=== PATIENT | female | born 1985 | race Caucasian/White ===

== ENCOUNTER 2017-07-28 09:53 | Emergency (ER) | payer BC ==
[2017-07-28] MEDS ORDERED: ALBUTEROL SULFATE/IPRATROPIUM 3 ML NEBU IH ONE ×2 (10:05→10:07)
[2017-07-28] MEDS ORDERED: PENICILLIN G BENZATHINE 2 ML SYRG IM ONE ×2 (10:09→10:41)
[2017-07-28] MEDS ORDERED: predniSONE 20 MG TABLET PO ONE (10:09)
--- NOTE | 2017-07-28 10:13 | ERNOTE ---
Dyspnea - General Presenting Symptoms: other - patient has no strep throat and she was up today with questionable stridor Time Seen by Provider: 07/28/17 10:07 Source: patient Exam Limitations: no limitations - Immun/Allergies/Home Medications Immunizations: IMMUNIZATION HX Immunizations Up to Date No History of Influenza Vaccine No Hx Pneumococcal Vaccination No Allergies/Adverse Reactions: Allergies No Known Allergies Allergy (Unverified 09/01/14 09:45) Home Medications: HOME MEDICATIONS Albuterol Sulfate [Proair Hfa] 2 puff IH Q4H PRN #1 inhaler 09/01/14 [Last Taken Unknown] Ciprofloxacin HCl [Ciloxan] 2 drop OP Q4H #1 bottle 09/01/14 [Last Taken Unknown ] Phenylephrine/Dm/Acetaminop/GG [Tylenol Cold & Flu Severe Cplt] 1 each PO [Last Taken 09/01/14 07:30] Promethazine HCl/Codeine [Phenergan W/Codeine Syrup] 5 ml PO Q4H PRN #120 ml 10/15 [Last Taken Unknown] predniSONE [Deltasone] 20 mg PO BID #10 tablet 07/28/17 [Last Taken Unknown] - History of Present Illness Narrative: Patient presents with possible stridor however it sounds more like increased phonation coming from the vocal cords Severity: moderate 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 Initiating event: Reports: other - strep throat Frequency of episodes: Reports: no prior episodes Modifying Factors - (Improves): Reports: nothing Modifying Factors (Worsens): Reports: nothing Associated Symptoms-Dyspnea: Reports: denies symptoms Prior Treatment: Reports: recently seen, treated by physician, currently on antibiotics Review of Systems - Review of Systems Constitutional: Present: See HPI EYE: Present: no symptoms reported ENT: Present: sore throat Respiratory: Present: stridor - questionable Cardiology: Present: no symptoms reported Gastrointestinal/Abdominal: Present: no symptoms reported Genitourinary: Present: no symptoms reported Musculoskeletal: Present: no symptoms reported Skin: Present: no symptoms reported Neurological: Present: no symptoms reported Endocrine: Present: no symptoms reported Hematologic/Lymphatic: Present: no symptoms reported Psych: Present: no symptoms reported - Patient's Past Medical History Patient History - Medical: Other - current strep throat Patient History - Cardiac/Respiratory: No pertinent hx Patient History - Cancer: No Hx of Cancer Patient History - Surgical Procedures: Patient History - Other: None LMP (females 10-50): chemo; 11 mo since period - Social History Living Situations: home Psych History: Hx of Depression Smoking Status: Former smoker Alcohol Use: none Drug Use: none - Immunizations Immunizations Up to Date: No Hx Pneumococcal Vaccination: No History of Influenza Vaccine: No Physical Exam - Physical Exam General Appearance: Present: wd/wn, alert, mild distress Head Exam: Present: normal inspection, no evidence of injury Eye Exam: Normal inspection: bilateral, PERRL: bilateral Ears, Nose, Throat: Present: normal ENT inspection, pharyngeal erythema Neck: Present: nontender, other - increased phonation Respiratory: Present: no respiratory distress, normal breath sounds, no accessory muscle use, chest nontender, lungs clear Cardiovascular/Chest: Present: regular rate, rhythm, no murmur, normal peripheral pulses Gastrointestinal/Abdominal: Present: normal bowel sounds, nontender, nondistended, soft, no organomegaly Rectal Exam: Present: deferred Back Exam: Present: normal inspection, normal range of motion Extremity Exam: Present: normal inspection, non-tender, no edema, normal range of motion Neurological Exam: Present: alert, oriented, normal mood/affect Skin Exam: Present: normal color, warm/dry Lymphatic Exam: Present: no adenopathy ED Progress - Vital Signs Patient's Vital Signs:: I have reviewed the patient's vital signs. Vital Signs: Vital Signs 07/28/17 07/28/17 09:57 10:08 Temperature 37.1 C Pulse Rate 75 98 Respiratory 25 H 23 H Rate Blood Pressure 155/102 O2 Sat by Pulse 99 99 Oximetry - X-Ray X-Ray #1 X-Ray: chest Interpretation: Reviewed by me X-Ray #2 X-Ray: neck soft tissue Interpretation: Reviewed by me - Progress/Reassessment Chief Complaint: Dyspnea Plan - Plan Plan: On soft tissue neck x-ray patient has minimal subglottic narrowing which could be secondary to chronic tracheitis. Patient has apparently been having these symptoms for 2-3 months and is seems appropriate for her to get an ENT referral. Patient will be placed on 5 days of prednisone and she was given 1.2 million units of Bicillin IM. Departure Clinical Impression: Tracheitis, chronic, with laryngitis - Departure Disposition: Home self-care Condition: Good Instructions: Laryngitis, [id number] Additional Instructions: call Dr. Lao for an appt Referrals: Teofilo Lao MD [[facility]] - Prescriptions: predniSONE [Deltasone] 20 mg PO BID #10 tablet
[2017-07-28] MEDS ORDERED: predniSONE 20 MG TABLET ONE (10:41)
[2017-07-28 13:32] VITALS: BP 155/92
== END 2017-07-28 10:50 | disposition home or self-care (01) ==
LOC: ER 09:53
DX: J37.1 Chronic laryngotracheitis (principal); Z87.891 Personal history of nicotine dependence

== ENCOUNTER 2017-10-04 13:11 | Emergency (ER) | payer BC ==
--- NOTE | 2017-10-04 13:34 | ERNOTE ---
Dyspnea - Date Date of Service: 10/04/17 - General Presenting Symptoms: shortness of breath, other - Cough Time Seen by Provider: 10/04/17 13:31 Source: patient, RN notes reviewed Exam Limitations: no limitations - Immun/Allergies/Home Medications Immunizations: IMMUNIZATION HX Immunizations Up to Date Yes History of Influenza Vaccine No Hx Pneumococcal Vaccination No Allergies/Adverse Reactions: Allergies amoxicillin Allergy (Verified 10/04/17 13:23) adhesive tape Adverse Reaction (Verified 10/04/17 13:23) Home Medications: HOME MEDICATIONS NK [No Home Medication] 10/04/17 [Last Taken Unknown] - History of Present Illness Narrative: 32 year old female presents to the ED for a cough that began 2 days ago. She also reports shortness of breath that began yesterday. She denies any fever. She has been taking an OTC cough and cold medication. Prior Treatment: Denies: recently seen Review of Systems - Review of Systems Constitutional: Present: fatigue. Absent: fever, chills EYE: Absent: eye pain, eye discharge ENT: Present: nose congestion, nasal drainage. Absent: ear pain, sore throat, throat swelling Respiratory: Present: shortness of breath, cough. Absent: wheezing, stridor Cardiology: Absent: chest pain, syncope Gastrointestinal/Abdominal: Absent: nausea, vomiting, abdominal pain Genitourinary: Present: no symptoms reported Musculoskeletal: Absent: muscle pain, joint pain Skin: Absent: rash, lesions Neurological: Absent: headache, dizziness/light-headedness Endocrine: Present: no symptoms reported Hematologic/Lymphatic: Absent: easy bruising, easy bleeding Psych: Present: anxiety - Patient's Past Medical History Patient History - Medical: Depression, Obesity, Other Patient History - Cardiac/Respiratory: No pertinent hx Patient History - Cancer: No Hx of Cancer Patient History - Surgical Procedures: Patient History - Other: None LMP (females 10-50): 3 months - Has nexplanon - Social History Living Situations: spouse Psych History: Hx of Depression Smoking Status: Former smoker Have you smoked in the past 12 months: No Do you dip or chew tobacco: No Alcohol Use: none Drug Use: none - Immunizations Immunizations Up to Date: Yes Hx Pneumococcal Vaccination: No History of Influenza Vaccine: No Physical Exam - Physical Exam General Appearance: Present: alert, mild distress, anxious, obese, crying, other - Speaking in complete sentences while complaining of dyspnea and crying Eye Exam: Normal inspection: bilateral Ears, Nose, Throat: Present: nasal congestion, normal pharynx. Absent: abnormal TM (R), abnormal TM (L), sinus pain/drainage Neck: Present: normal inspection, nontender, supple Respiratory: Present: no respiratory distress, accessory muscle use - mild, wheezing - Mild Cardiovascular/Chest: Present: regular rate, rhythm, no murmur Neurological Exam: Present: alert, oriented, no motor/sensory deficits. Absent : normal mood/affect Skin Exam: Present: normal color, warm/dry ED Progress - Results and Orders Patient's Lab Results:: I have reviewed the patient's lab results. - Vital Signs Patient's Vital Signs:: I have reviewed the patient's vital signs. Vital Signs: Vital Signs 10/04/17 13:18 Temperature 36.7 C Pulse Rate 88 Respiratory 18 Rate Blood Pressure 132/92 O2 Sat by Pulse 98 Oximetry - EKG EKG: NSR EKG read: Reviewed by me - X-Ray X-Ray #1 X-Ray: chest Interpretation: Reviewed by me X-ray Comments: No acute cardiopulmonary process - Progress/Reassessment Chief Complaint: Dyspnea Progress:: Unchanged Departure Clinical Impression: Upper respiratory infection, viral - Departure Disposition: Home self-care Condition: Stable Instructions: Upper Respiratory Infection, Adult, [id number], Form - Excuse from Work, School, or Physical Activity Additional Instructions: Rest and drink plenty of fluids Run a humidifier Use nasal saline spray for congestion Tylenol and/or ibuprofen for pain You can take Robitussin DM for cough but avoid meds with a nasal decongestant Follow up with your doctor for fevers or symptoms that persist longer than 1 week
[2017-10-04] MEDS ORDERED: ALBUTEROL SULFATE/IPRATROPIUM 3 ML NEBU IH ONE ×2 (13:39→13:54)
[2017-10-04 13:50] LABS: Hematocrit 41.9 % (37.0-47.0); Hemoglobin 13.9 gm/dL (12.5-16.0); Mean Cell Volume 92.5 fl (78-100); Mean Corpuscular Hemoglobin 30.7 pg (27-31); Mean Corpuscular Hgb Conc 33.2 g/dl (32-36); Mean Platelet Volume 9.3 fl (6.0-9.5); Neutrophil # 3.9 K/mm3 (1.3-6.0); Neutrophil % 57.3 % (42-75.0); Platelet Count 270 K/mm3 (150-450); Red Blood Count 4.53 M/mm3 (4.2-5.4); Red Cell Distribution Width 12.1 % (11.5-14.0); White Blood Count 6.8 K/mm3 (4.0-10.5)
[2017-10-04 14:03] LABS: Albumin * 3.3 gm/dl (3.4-5.0); Anion Gap 9.6 mmol/L (6.8-13.8); BUN/Creatinine Ratio 8.7 (9.0-21.6); Bilirubin, Total 0.3 mg/dL (0.0-1.1); Ca. Corrected For Albumin 8.8 mg/dL (8.4-10.2); Calcium * 8.6 mg/dL (7.9-10.9); Carbon Dioxide 27.4 mmol/L (24-32.6); Total Protein 7.2 gm/dL (6.2-8.2)
[2017-10-04 14:55] VITALS: BP 152/91
== END 2017-10-04 14:52 | disposition home or self-care (01) ==
LOC: ER 13:11
DX: Z87.891 Personal history of nicotine dependence; J06.9 Acute upper respiratory infection, unspecified; B97.89 Other viral agents as the cause of diseases classified elsewhere